=== PATIENT | male | born 1980 ===

== ENCOUNTER 2017-03-06 08:15 | Emergency (ER) | payer BC ==
[2017-03-06 08:37] VITALS: BP 125/79
--- NOTE | 2017-03-06 09:31 | UC ---
Respiratory Complaint HPI - HPI Summary HPI Summary: 2 weeks of painful nonproductive cough that is interfering with sleep. pt does have seasonal allergies which are active right now. he is exhausted from lack of sleep but otherwise feels well. - History of Current Complaint Chief Complaint: UCRespiratory Stated Complaint: DRY COUGH,BACK PAIN Time Seen by Provider: 03/06/17 09:00 Hx Obtained From: Patient Onset/Duration: Gradual Onset, Lasting Weeks, Still Present Timing: Constant Severity Initially: Moderate Severity Currently: Moderate Pain Intensity: 5 - only with cough Character: Cough: Nonproductive Aggravating Factors: Recumbent Position Alleviating Factors: Upright Position Associated Signs And Symptoms: Positive: Pleuritic Chest Pain. Negative: Dyspnea, Fever, Chills, Wheezing, Hemoptysis, Dizziness, URI, Nasal Congestion, Hoarseness, Sinus Discomfort Related History: Seasonal Allergies - Allergies/Home Medications Allergies/Adverse Reactions: Allergies Allergy/AdvReac Type Severity Reaction Status Date / Time No Known Allergies Allergy Verified 03/06/17 08:28 Home Medications: Home Medications Citalopram TAB* [CeleXA TAB*] 10 mg PO DAILY 03/06/17 [History Confirmed ] Lisinopril TAB* [Prinivil TAB*] 10 mg PO BID 03/06/17 [History Confirmed ] Montelukast Sodium TAB* [Singulair TAB*] 10 mg PO DAILY 03/06/17 [History Confirmed 03/06/17] Naproxen Sodium [Naproxen Sodium 500 MG TAB] 500 mg PO Q8H PRN 03/06/17 [ History Confirmed 03/06/17] PMH/Surg Hx/FS Hx/Imm Hx Cardiovascular History: Hypertension - Surgical History Surgical History: None - Family History Known Family History: Positive: Cardiac Disease, Hypertension Negative: Diabetes - Social History Occupation: Employed Full-time Lives: With Family Alcohol Use: Occasionally Substance Use Type: None Smoking Status (MU): Never Smoked Tobacco Review of Systems Constitutional: Negative Skin: Negative Eyes: Negative ENT: Nasal Discharge Respiratory: Cough Cardiovascular: Chest Pain - pleuritic Gastrointestinal: Negative Genitourinary: Negative Neurological: Negative All Other Systems Reviewed And Are Negative: Yes Physical Exam Triage Information Reviewed: Yes Appearance: Well-Appearing, No Pain Distress, Well-Nourished Vital Signs: Initial Vital Signs Temp 98.5 F 03/06/17 08:30 Pulse 91 03/06/17 08:30 Resp 18 03/06/17 08:30 BP 125/79 03/06/17 08:30 Pulse Ox 97 03/06/17 08:30 Vital Signs Reviewed: Yes Eyes: Positive: Conjunctiva Clear, Other: - allergic shiners. Negative: Discharge ENT: Positive: Hearing grossly normal, Pharynx normal, Nasal drainage, TMs normal, Other: - pale boggy nasal mucosa. Negative: Nasal congestion, Tonsillar swelling, Tonsillar exudate, Trismus, Muffled/hoarse voice Dental Exam: Normal Neck: Positive: Supple, Nontender, No Lymphadenopathy Respiratory: Positive: Lungs clear, Normal breath sounds, No respiratory distress, No accessory muscle use Cardiovascular: Positive: RRR, No Murmur Musculoskeletal Exam: Normal Neurological: Positive: Alert, Muscle Tone Normal Psychological: Positive: Age Appropriate Behavior Skin Exam: Normal UC Diagnostic Evaluation - Laboratory O2 Sat by Pulse Oximetry: 97 Respiratory Course/Dx - Differential Dx/Diagnosis Differential Diagnosis/HQI/PQRI: Bronchitis, Lower Resp Infection, Sinusitis Provider Diagnoses: allergies, bronchospasm Discharge - Discharge Plan Condition: Stable Disposition: HOME Prescriptions: Albuterol HFA INHALER* [Ventolin HFA Inhaler*] 2 puff INH Q4H PRN #1 mdi PRN Reason: Sob/Wheezing Benzonatate CAP* [Tessalon 100 MG CAP*] 100 mg PO TID #30 cap Fluticasone NASAL * [Flonase *] 2 spray BOTH NARES DAILY #1 btl guaiFENesin ER TAB [Mucinex*] 600 mg PO BID PRN #1 box PRN Reason: Cough guaiFENesin/CODIEN 100MG-10MG* [Robitussin AC 100Mg-10Mg*] 5 - 10 ml PO BEDTIME PRN #100 udc MDD 10ml PRN Reason: Cough Patient Education Materials: Allergies (ED), Bronchospasm (ED) Referrals: Family [facility] [Primary Care Provider] - If Needed Additional Instructions: TRY USING THE NETTI POT IN THE MORNINGS DISCUSSED. YOU MUST ALWAYS USE CLEAN WATER. INHALED BRONCHODILATORS: You have received a prescription for an inhaled bronchodilator -- a medication which stimulates the airways in the lung to dilate. This improves the flow of air in asthma, bronchitis, and emphysema. These medicines have some similarity to adrenaline, and can cause similar side effects: shakiness, racing heart, and a sense of nervousness. These side effects decrease with time. Contact your doctor if these side effects are severe. Do not over-use the medicine. Too-frequent use of the inhaler may make it ineffective. Call your doctor if the inhaler is not controlling your symptoms at the prescribed doses. COUGH-SUPPRESSANT & EXPECTORANT MEDICATION: You are to use a cough medication as needed for relief of symptoms. This medicine is a combination of an expectorant (to make the mucous thinner and more easily "coughed up") and a cough suppressant (to reduce the frequency of coughing). The cough-suppressant medicine is related to narcotics. You may experience mild nausea and sleepiness. Some patients who are very sensitive to narcotics may have stomach pain from this medicine. Taking the medicine with food reduces these side effects. Do not drive or work with machinery until you know how this medicine affects you. The expectorant should have no side effects. Iodine-containing expectorants (such as organidin) should not be taken by persons with active thyroid disease unless approved by your doctor. Call the doctor if you develop shortness of breath, hives, rash, itching, lightheadedness, or severe nausea and vomiting. EXPECTORANT MEDICATION: WE SENT IN A SCRIPT FOR MUCINEX SO THAT IT IS EASIER FOR YOU TO PICK THE RIGHT MED AT THE PHARMACY. HOWEVER, YOU CAN ALSO GO TO THE [employer] [facility] AND BUY PLAIN GUAIFENESIN WITHOU BINDERS OR FILLERS. An expectorant medicine has been prescribed. This type of drug makes mucous thinner, helping the sinuses, nose, and bronchial tubes to remain free of pus and mucous. Expectorants make a cough less severe and more comfortable, and help infected sinuses drain. In general, antihistamines defeat the purpose of the expectorant by making mucous thicker. They should be avoided unless specifically recommended by your physician. TESSALON PERLES: You have received a prescription for Tessalon Perles (benzonatate). This is a non-narcotic medicine for relief of cough. It usually works in about 15- 20 minutes and lasts around four hours. Tessalon Perles should be swallowed. They should not be chewed or dissolved in the mouth (this can produce temporary numbing of the mouth and choking can occur). If you develop any adverse effects such as wheezing, shortness of breath, hives, rash, itching, or lightheadedness, please return at once. NASAL CORTICOSTEROID INHALER: Nasal "cortisone" inhalers decrease swelling and inflammation in the nasal passages. Nasal steroids decrease the effects of allergy and infection without affecting your whole body. They do NOT cause the side effects we see with steroid shots or pills. These inhalers are a long-term investment in keeping your nose and sinuses clear. You probably won't notice any difference for at least a day. Sometimes it takes several days. Once you have noticed improvement, you can cut back on the inhaler. If your problem only occurs at certain times of the year, you can stop it when you' re better. There's no harm in using it for a long time. Some patients may notice a dry tight throat at first. If you develop severe pain, fever, or foul nasal drainage, see the doctor at once.
== END 2017-03-06 09:28 | disposition home or self-care (01) ==
LOC: UCCORT 08:15
DX: J31.0 Chronic rhinitis (principal); J98.01 Acute bronchospasm; I10 Essential (primary) hypertension
CPT/HCPCS: 99202; G0463

== ENCOUNTER 2017-09-24 17:28 | Emergency (ER) | payer BC ==
--- OUTSIDE RECORDS SUMMARY | 2017-09-24 18:16 | XMS REPORT ---
:1980 External Reference #:[id number] Author Organization [facility] 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 Active Onset: 10/28/2011 Benign essential hypertension Ines Cruz M.D. Active Onset: 10/28/2011 Depressive disorder Ines Cruz M.D. 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 Active Onset: 05/15/2015 Essential hypertension Ines Cruz M.D. Active Onset: 10/28/2011 Contact dermatitis Ines Cruz M.D. Resolved Resolved: 03/29/2013 Onset: 04/01/2012 Allergic rhinitis Ines Cruz M.D. 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 day Hydroxyzine HCL Active Tablets 25mg 60tabs 1-2 tab G47.00 Steve Cruz by mouth Ines Cohn, qpm as M.D. needed Lipitor Active Tablets 40mg 90tabs 1 by Anthony, 017 mouth Ines Cohn, every day M.D. Lisinopril-Hydr Active Tablets 20-25mg 180tabs 1 by I10 Anthony ochlorothiazide 014 mouth Ines Cohn, twice a M.D. day Singulair Active Tablets 10mg 90tabs take one J30.2 Anthony, 012 tablet by Ines Cohn, mouth M.DDennis every day J30.9 Citalopram 10/28/2011 Active Tablets 20mg 90tabs 1 every day F41.9 Ines Cruz Hydrobromide M. MDennisDDennis F32.9 Terbinafine HCL Hx Tablets 250mg 90tabs 1 by mouth every B35.1 Ines Cruz 017 - day M. MDennisD. 017 Macrobid Hx Capsules 100mg 10caps tab one by mouth R35.0 Ines Cruz 016 - twice a day x 5 M., M.D. days 016 Azithromycin Hx Tablets 250mg 6tabs take two tablets J01.80 Ines Cruz 016 - by mouth as one M. M.D. dose on the first day then take one daily thereafter x 4 days Tamsulosin HCL Hx Capsules 0.4mg 30caps 1 by mouth every 601.0 Ines Cruz 014 - day M., M.D. 014 Zithromax Hx Tablets 250mg 6tabs tab 2 today and 788.41 Ines Cruz 014 - then tab one by M. M.D. mouth every day x 014 4 days Bactrim DS Hx Tablets 800-160 20tabs 1 by mouth bid Ines Cruz 013 - mg M., M.D. 013 Pyridium Hx Tablets 200mg 6tabs 1 po tid x 2 days 597.80 Ines Cruz 013 - Advised To Get M., M.D. Azo OTC 014 788.63 788.41 Cipro 06/07/2013 - Hx Tablets 500mg 14tabs 1 by mouth 597.80 Anthony, 06/14/2013 twice a Ahmad M., day M.D. Keflex 05/02/2013 - Hx Capsules 500mg 30caps 1 three 704.8 Anthony, 05/12/2013 times a Ahmad M., day M.D. Lisinopril/[place] 10/26/2012 - Hx Tablets 20-25mg 60tabs 1 by mouth 401.1 Anthony, chlorothiazide 01/31/2014 twice a Ahmad M., day M.D. Amoxicillin 08/31/2012 - Hx Tablets 500mg 30tabs 1 three 461.8 Anthony, 09/21/2012 times a Ahmad M., day x10 M.D. day 382.9 Pred Forte 08/31/2012 - Hx Suspension 1% 10ml 1 drop both 372.39 Anthony, 09/27/2013 eyes twice Ahmad M., a day as M.D. needed Felodipine ER 05/20/2012 - Hx Tablets ER 5mg 90tabs 1 by mouth 401.1 Anthony, 10/26/2012 24HR every day Ines Cohn M.D. Benazepril HCL 05/20/2012 - Hx Tablets 40mg 90tabs 1 by mouth 401.1 Anthony, 10/26/2012 every day Ines Cohn M.D. Augmented 05/20/2012 Hx Cream 0.05% 50gm apply to 782.1 Anthony, Betamethasone affected Ahmad M., Dipropionate area tid M.D. prn 692.9 Triamcinolone 03/07/2012 - Hx Cream 0.5% 60gm apply to 110.3 Anthony, Acetonide 10/16/2012 affected Ahmad M., area twice M.D. a day Jose 03/07/2012 - Hx Tablets 5-20mg Samples Tab One PO 401.1 Anthony, 05/20/2012 qd Ines Cohn M.D. Tobradex 12/30/2011 - Hx Suspension 0.3-0.1 10ml 2 drops 372.30 Anthony, 01/06/2012 % both eyes Ahosman M., three times M.D. a day Diprolene AF 12/18/2011 - Hx Cream 0.05% 50gm apply to 692.9 Anthony, 03/07/2012 affected Ahevgenyd Taras., area as M.D. needed 110.3 Twynsta 10/28/2011 - Hx Tablets 80-5mg 30tabs 1 every day 401.1 Anthony, Ahmad 03/07/2012 Toya Cohn Immunizations CPT Code Status Date Vaccine Lot # [id number] Given 05/18/2015 Flu Vaccine [id number] Given 04/27/2013 Flu Vaccine Vital Signs Date Vital Result Comment 09/10/2017 BP Systolic 118 mmHg BP Diastolic 60 mmHg Height 66.75 inches 5'6.75" Weight 174.00 lb BMI (Body Mass Index) 27.5 kg/m2 Heart Rate 80 /min Respiratory Rate 16 /min 07/12/2017 BP Systolic 116 mmHg BP Diastolic 60 mmHg Height 66.75 inches 5'6.75" Weight 170.00 lb BMI (Body Mass Index) 26.8 kg/m2 Heart Rate 70 /min Respiratory Rate 16 /min 04/30/2017 BP Systolic 118 mmHg BP Diastolic 58 mmHg Height 66.75 inches 5'6.75" Weight 182.00 lb BMI (Body Mass Index) 28.7 kg/m2 Heart Rate 79 /min Respiratory Rate 16 /min 12/14/2016 BP Systolic 138 mmHg BP Diastolic 82 mmHg Height 66.75 inches 5'6.75" Weight 182.00 lb BMI (Body Mass Index) 28.7 kg/m2 Heart Rate 87 /min Respiratory Rate 18 /min 07/21/2016 BP Systolic 118 mmHg BP Diastolic 74 mmHg Height 66.75 inches 5'6.75" Weight 179.00 lb BMI (Body Mass Index) 28.2 kg/m2 Heart Rate 93 /min Respiratory Rate 18 /min 05/25/2016 BP Systolic 126 mmHg BP Diastolic 84 mmHg Height 66.75 inches 5'6.75" Weight 180.00 lb BMI (Body Mass Index) 28.4 kg/m2 Heart Rate 110 /min Respiratory Rate 18 /min 04/14/2016 BP Systolic 122 mmHg BP Diastolic 76 mmHg Height 66.75 inches 5'6.75" Weight 181.00 lb BMI (Body Mass Index) 28.6 kg/m2 Heart Rate 80 /min Respiratory Rate 16 /min 12/17/2015 BP Systolic 128 mmHg BP Diastolic 88 mmHg Heart Rate 88 /min Respiratory Rate 16 /min 09/10/2015 BP Systolic 126 mmHg BP Diastolic 78 mmHg Height 66.75 inches 5'6.75" Weight 178.00 lb BMI (Body Mass Index) 28.1 kg/m2 Heart Rate 80 /min Respiratory Rate 16 /min 07/30/2015 BP Systolic 124 mmHg BP Diastolic 78 mmHg Height 66.75 inches 5'6.75" Weight 177.00 lb BMI (Body Mass Index) 27.9 kg/m2 Heart Rate 80 /min Respiratory Rate 20 /min 05/15/2015 BP Systolic 126 mmHg BP Diastolic 78 mmHg Height 66.75 inches 5'6.75" Weight 182.00 lb BMI (Body Mass Index) 28.7 kg/m2 Heart Rate 88 /min Respiratory Rate 16 /min 04/10/2015 BP Systolic 126 mmHg BP Diastolic 72 mmHg Height 66.75 inches 5'6.75" Weight 176.00 lb BMI (Body Mass Index) 27.8 kg/m2 Heart Rate 88 /min Respiratory Rate 16 /min 02/20/2015 BP Systolic 126 mmHg BP Diastolic 84 mmHg Height 66.75 inches 5'6.75" Weight 171.00 lb BMI (Body Mass Index) 27.0 kg/m2 Heart Rate 80 /min Respiratory Rate 16 /min 02/06/2015 BP Systolic 126 mmHg BP Diastolic 78 mmHg Height 66.75 inches 5'6.75" Weight 181.00 lb BMI (Body Mass Index) 28.6 kg/m2 Heart Rate 80 /min Respiratory Rate 16 /min 01/23/2015 BP Systolic 126 mmHg BP Diastolic 78 mmHg Height 66.75 inches 5'6.75" Weight 180.00 lb BMI (Body Mass Index) 28.4 kg/m2 Heart Rate 80 /min Respiratory Rate 16 /min 10/03/2014 BP Systolic 126 mmHg BP Diastolic 80 mmHg Height 66.75 inches 5'6.75" Weight 175.00 lb BMI (Body Mass Index) 27.6 kg/m2 Heart Rate 80 /min Respiratory Rate 16 /min 09/12/2014 BP Systolic 128 mmHg BP Diastolic 76 mmHg Height 66.75 inches 5'6.75" Weight 176.00 lb BMI (Body Mass Index) 27.8 kg/m2 Heart Rate 88 /min Body Temperature 97.8 F Respiratory Rate 16 /min 08/28/2014 BP Systolic 126 mmHg BP Diastolic 78 mmHg Height 66.75 inches 5'6.75" Weight 175.00 lb BMI (Body Mass Index) 27.6 kg/m2 Heart Rate 78 /min Respiratory Rate 16 /min 07/24/2014 BP Systolic 124 mmHg BP Diastolic 76 mmHg Height 66.75 inches 5'6.75" Weight 175.00 lb BMI (Body Mass Index) 27.6 kg/m2 Heart Rate 80 /min Respiratory Rate 16 /min 04/11/2014 BP Systolic 128 mmHg BP Diastolic 78 mmHg Height 66.75 inches 5'6.75" Weight 175.00 lb BMI (Body Mass Index) 27.6 kg/m2 Heart Rate 88 /min Respiratory Rate 16 /min 03/01/2014 BP Systolic 124 mmHg BP Diastolic 70 mmHg Height 66.75 inches 5'6.75" Weight 175.00 lb BMI (Body Mass Index) 27.6 kg/m2 Heart Rate 88 /min Respiratory Rate 16 /min 01/31/2014 BP Systolic 132 mmHg BP Diastolic 70 mmHg Height 66.75 inches 5'6.75" Weight 172.00 lb BMI (Body Mass Index) 27.1 kg/m2 Heart Rate 88 /min Respiratory Rate 16 /min 09/27/2013 BP Systolic 124 mmHg BP Diastolic 70 mmHg Height 66.75 inches 5'6.75" Weight 174.00 lb BMI (Body Mass Index) 27.5 kg/m2 Heart Rate 80 /min Respiratory Rate 16 /min 06/16/2013 BP Systolic 122 mmHg BP Diastolic 80 mmHg Height 66.75 inches 5'6.75" Weight 172.00 lb BMI (Body Mass Index) 27.1 kg/m2 Heart Rate 88 /min Respiratory Rate 20 /min 06/07/2013 BP Systolic 122 mmHg BP Diastolic 72 mmHg Height 66.75 inches 5'6.75" Weight 170.00 lb BMI (Body Mass Index) 26.8 kg/m2 Heart Rate 80 /min Respiratory Rate 16 /min 05/31/2013 BP Systolic 132 mmHg BP Diastolic 76 mmHg Height 66.75 inches 5'6.75" Weight 170.00 lb BMI (Body Mass Index) 26.8 kg/m2 Heart Rate 88 /min Respiratory Rate 16 /min 05/02/2013 BP Systolic 118 mmHg BP Diastolic 74 mmHg Height 66.75 inches 5'6.75" Weight 168.00 lb BMI (Body Mass Index) 26.5 kg/m2 Heart Rate 80 /min Respiratory Rate 16 /min 03/29/2013 BP Systolic 128 mmHg BP Diastolic 78 mmHg Height 66.75 inches 5'6.75" Weight 170.00 lb BMI (Body Mass Index) 26.8 kg/m2 Heart Rate 80 /min Respiratory Rate 16 /min 01/18/2013 BP Systolic 136 mmHg BP Diastolic 80 mmHg Height 66.75 inches 5'6.75" Weight 168.00 lb BMI (Body Mass Index) 26.5 kg/m2 Heart Rate 72 /min Respiratory Rate 16 /min 11/28/2012 BP Systolic 136 mmHg BP Diastolic 82 mmHg Height 66.75 inches 5'6.75" Weight 170.00 lb BMI (Body Mass Index) 26.8 kg/m2 Heart Rate 80 /min Respiratory Rate 20 /min 10/26/2012 BP Systolic 144 mmHg BP Diastolic 88 mmHg Height 66.75 inches 5'6.75" Weight 172.00 lb BMI (Body Mass Index) 27.1 kg/m2 Heart Rate 90 /min Respiratory Rate 16 /min 08/31/2012 BP Systolic 130 mmHg BP Diastolic 76 mmHg Height 66.75 inches 5'6.75" Weight 171.00 lb BMI (Body Mass Index) 27.0 kg/m2 Heart Rate 80 /min Respiratory Rate 16 /min 07/19/2012 BP Systolic 118 mmHg BP Diastolic 70 mmHg Height 66.75 inches 5'6.75" Weight 170.00 lb BMI (Body Mass Index) 26.8 kg/m2 Heart Rate 80 /min Respiratory Rate 16 /min 06/01/2012 BP Systolic 122 mmHg BP Diastolic 70 mmHg Height 66.75 inches 5'6.75" Weight 168.00 lb BMI (Body Mass Index) 26.5 kg/m2 Heart Rate 88 /min Respiratory Rate 16 /min 05/20/2012 BP Systolic 130 mmHg BP Diastolic 82 mmHg Height 66.75 inches 5'6.75" Weight 171.00 lb BMI (Body Mass Index) 27.0 kg/m2 Heart Rate 82 /min Respiratory Rate 16 /min 03/07/2012 BP Systolic 120 mmHg BP Diastolic 82 mmHg Height 66.75 inches 5'6.75" Weight 168.00 lb BMI (Body Mass Index) 26.5 kg/m2 Heart Rate 80 /min Respiratory Rate 16 /min 12/30/2011 BP Systolic 124 mmHg BP Diastolic 80 mmHg Height 66.75 inches 5'6.75" Weight 168.00 lb BMI (Body Mass Index) 26.5 kg/m2 Heart Rate 74 /min Respiratory Rate 16 /min 10/30/2011 BP Systolic 130 mmHg BP Diastolic 80 mmHg Height 66.75 inches 5'6.75" Weight 167.00 lb BMI (Body Mass Index) 26.3 kg/m2 Heart Rate 80 /min Results Test Date Test Result H/L Range Note Hemoglobin A1c 07/12/2017 Hemoglobin A1c @ 5.9 % (4.0-6.0) Est Average Glucose 123 mg/dL 1 Lipid 07/12/2017 Cholesterol @ 101 mg/dL (0-200) Triglyceride @ 101 mg/dL (30-200) HDL Cholesterol @ 44 mg/dL (>40) 2 Chol/HDL Ratio 2.3 RATIO 3 LDL Chol (Calc) 37 mg/dL (<130) 4 CBC With Diff 04/30/2017 WBC 10.2 10*3/uL (4.1-11.0) RBC 4.82 10*6/uL (4.60-6.10) HGB 14.6 g/dL (13.5-18.0) HCT 42.2 % (41.0-53.0) MCV 87.6 fL (80.0-95.0) MCH 30.3 pg (27.0-32.0) MCHC 34.5 g/dL (32.0-36.0) RDW 13.9 % (10.5-14.5) PLT 301 10*3/uL (150-450) MPV 8.5 fL (7.1-10.7) Neut % 63.7 % (35.0-75.0) Lymph % 29.8 % (16.0-52.0) [place] % 5.7 % (0.0-8.0) Eos % 0.5 % (0.0-5.0) Baso % 0.3 % (0.0-4.0) Neut # 6.5 10*3/uL (1.8-7.7) Lymph # 3.0 10*3/uL (1.2-4.8) [place] # 0.6 10*3/uL (0.0-0.8) Eos # 0.0 10*3/uL (0.0-0.5) Baso # 0.0 10*3/uL (0.0-0.2) CMP 04/30/2017 Sodium 129 mmol/L Low (136-145) Potassium 3.8 mmol/L (3.6-5.2) Chloride 93 mmol/L Low (100-108) Co2 28 mmol/L (22-31) Anion Gap 8 mmol/L (7-16) Urea Nitrogen 13 mg/dL (7-24) Creatinine 0.88 mg/dL (0.80-1.30) BUN/Creat Ratio 14.8 RATIO (10.0-20.0) Glucose 90 mg/dL (70-99) Calcium 9.1 mg/dL (8.4-10.2) Total Protein 8.6 g/dL High (6.4-8.2) Albumin 4.5 g/dL (3.5-4.6) Globulin 4.1 g/dL (2.7-4.3) Alb/Glob Ratio 1.1 RATIO Alkaline Phosphatase 74 U/L (45-117) Bilirubin,Total 0.5 mg/dL (0.0-1.0) Ast (Sgot) 19 U/L (11-39) Alt (SGPT) 53 U/L (12-78) GFR >60 ml/min/1.73m2 (>59) GFR ( Amer) >60 ml/min/1.73m2 (>59) GFR Interpretation <SEE NOTE> 5 Lipid 04/30/2017 Cholesterol @ 168 mg/dL (0-200) Triglyceride @ 239 mg/dL High (30-200) HDL Cholesterol @ 39 mg/dL Low (>40) 6 Chol/HDL Ratio 4.3 RATIO 7 LDL Chol (Calc) 81 mg/dL (<130) 8 Laboratory test finding 04/30/2017 TSH,Ultrasensitive @ 0.629 mIU/L ( 0.360-4.170) Hemoglobin A1c 04/30/2017 Hemoglobin A1c @ 6.0 % (4.0-6.0) Est Average Glucose 126 mg/dL 9 CBC With Diff 07/21/2016 WBC 6.8 10*3/uL (4.1-11.0) RBC 4.78 10*6/uL (4.60-6.10) HGB 14.4 g/dL (13.5-18.0) HCT 42.4 % (41.0-53.0) MCV 88.6 fL (80.0-95.0) MCH 30.1 pg (27.0-32.0) MCHC 33.9 g/dL (32.0-36.0) RDW 14.0 % (10.5-14.5) PLT 301 10*3/uL (150-450) MPV 8.9 fL (7.1-10.7) Neut % 54.3 % (35.0-75.0) Lymph % 37.9 % (16.0-52.0) [place] % 6.6 % (0.0-8.0) Eos % 0.5 % (0.0-5.0) Baso % 0.7 % (0.0-4.0) Neut # 3.7 10*3/uL (1.8-7.7) Lymph # 2.6 10*3/uL (1.2-4.8) [place] # 0.5 10*3/uL (0.0-0.8) Eos # 0.0 10*3/uL (0.0-0.5) Baso # 0.0 10*3/uL (0.0-0.2) CMP 07/21/2016 Sodium 134 mmol/L Low (136-145) Potassium 3.9 mmol/L (3.6-5.2) Chloride 93 mmol/L Low (100-108) Co2 28 mmol/L (22-31) Anion Gap 13 mmol/L (7-16) Urea Nitrogen 12 mg/dL (7-24) Creatinine 0.96 mg/dL (0.80-1.30) BUN/Creat Ratio 12.5 RATIO (10.0-20.0) Glucose 87 mg/dL (70-99) Calcium 8.9 mg/dL (8.4-10.2) Total Protein 8.1 g/dL (6.4-8.2) Albumin 4.5 g/dL (3.5-4.6) Globulin 3.6 g/dL (2.7-4.3) Alb/Glob Ratio 1.3 RATIO Alkaline Phosphatase 58 U/L (45-117) Bilirubin,Total 0.4 mg/dL (0.0-1.0) Ast (Sgot) 15 U/L (11-39) Alt (SGPT) 37 U/L (12-78) GFR >60 ml/min/1.73m2 (>59) GFR ( Amer) >60 ml/min/1.73m2 (>59) GFR Interpretation <SEE NOTE> 10 Hemoglobin A1c 07/21/2016 Hemoglobin A1c @ 5.9 % (4.0-6.0) Est Average Glucose 123 mg/dL 11 Laboratory test finding 07/21/2016 TSH,Ultrasensitive @ 0.941 mIU/L ( 0.360-4.170) Lipid 07/21/2016 Cholesterol @ 165 mg/dL (0-200) Triglyceride @ 220 mg/dL High (30-200) HDL Cholesterol @ 41 mg/dL (>40) 12 Chol/HDL Ratio 4.0 RATIO 13 LDL Chol (Calc) 80 mg/dL (<130) 14 Laboratory test finding 07/30/2015 TSH,Ultrasensitive @ 0.901 mIU/L ( 0.360-4.170) Hemoglobin A1c 07/30/2015 Hemoglobin A1c @ 5.8 % (4.0-6.0) Est Average Glucose 120 mg/dL 15 Lipid 07/30/2015 Cholesterol @ 151 mg/dL (0-200) Triglyceride @ 176 mg/dL (30-200) HDL Cholesterol @ 42 mg/dL (>40) 16 Chol/HDL Ratio 3.6 RATIO 17 LDL Chol (Calc) 74 mg/dL (<130) 18 CMP 07/30/2015 Sodium 133 mmol/L Low (136-145) Potassium 3.8 mmol/L (3.6-5.2) Chloride 96 mmol/L Low (100-108) Co2 27 mmol/L (22-31) Anion Gap 10 mmol/L (7-16) Urea Nitrogen 15 mg/dL (7-24) Creatinine 0.95 mg/dL (0.80-1.30) BUN/Creat Ratio 15.8 RATIO (10.0-20.0) Glucose 99 mg/dL (70-99) Calcium 8.9 mg/dL (8.4-10.2) Total Protein 8.2 g/dL (6.4-8.2) Albumin 4.8 g/dL High (3.5-4.6) Globulin 3.4 g/dL (2.7-4.3) Alb/Glob Ratio 1.4 RATIO Alkaline Phosphatase 58 U/L (45-117) Bilirubin,Total 0.5 mg/dL (0.0-1.0) Ast (Sgot) 22 U/L (11-39) Alt (SGPT) 51 U/L (12-78) GFR >60 ml/min/1.73m2 (>59) GFR ( Amer) >60 ml/min/1.73m2 (>59) GFR Interpretation <SEE NOTE> 19 CBC With Diff 07/30/2015 WBC 9.3 10*3/uL (4.1-11.0) RBC 4.85 10*6/uL (4.60-6.10) HGB 14.5 g/dL (13.5-18.0) HCT 43.8 % (41.0-53.0) MCV 90.3 fL (80.0-95.0) MCH 29.8 pg (27.0-32.0) MCHC 33.1 g/dL (32.0-36.0) RDW 13.6 % (10.5-14.5) PLT 290 10*3/uL (150-450) MPV 8.6 fL (7.1-10.7) Neut % 59.2 % (35.0-75.0) Lymph % 33.8 % (16.0-52.0) [place] % 6.1 % (0.0-8.0) Eos % 0.4 % (0.0-5.0) Baso % 0.5 % (0.0-4.0) Neut # 5.5 10*3/uL (1.8-7.7) Lymph # 3.1 10*3/uL (1.2-4.8) [place] # 0.6 10*3/uL (0.0-0.8) Eos # 0.0 10*3/uL (0.0-0.5) Baso # 0.0 10*3/uL (0.0-0.2) CBC W/Automated Diff 02/06/2015 White Blood Count 6.0 K/uL 3.4-10.5 Red Blood Count 4.71 M/uL 4.20-5.80 Hemoglobin 14.4 gm/dL 12.8-17.0 Hematocrit 43.1 % 38.0-48.0 Mean Cell Volume 91.5 fl 80.0-96.0 Mean Corpuscular HGB 30.6 pg 27.0-33.0 Mean Corpuscular HGB Conc 33.4 g/dL 31.7-36.0 Platelet Count 289 K/uL 150-400 Red Cell Distri Width SD 45.3 fl 36-51 Red Cell Distri Width %CV 13.9 % 11.6-15.8 Mean Platelet Volume 11.3 fL High 6.6-10.6 Neut% 51.8 % 33.0-73.0 Lymph % 38.9 % 17.0-56.0 [place] % 7.6 % 0.0-10.0 Eo% 1.2 % 0.0-5.0 Bas% 0.5 % 0.1-1.0 Neut# 3.09 K/uL 1.8-7.0 Lymph # 2.32 K/uL 1.8-7.0 [place] # 0.45 K/uL 0.0-0.8 Eos # 0.07 K/uL 0.0-0.5 Baso # 0.03 K/uL Low 0.1-0.2 Comprehensive Metabolic Panel 02/06/2015 Glucose 111 mg/dL High 74-106 BUN 11 mg/dL 7-18 Creatinine 0.8 mg/dL 0.6-1.3 Glom Filtration Rate, Estimate >60 mL/min >60 If >60 mL/min >60 20 BUN/Creat 13.7 ratio Sodium 134 mmol/L Low 136-145 Potassium 4.1 mmol/L 3.5-5.1 Chloride 99 mmol/L 98-107 Carbon Dioxide 30 mmol/L 21-32 Anion Gap 5 mEq/L Low 8-16 Calcium 9.4 mg/dL 8.5-10.1 Total Protein 7.7 g/dL 6.4-8.2 Albumin 4.3 g/dL 3.4-5.0 Globulin 3.4 g/dL 1.9-4.3 Alb/Glob 1.3 ratio Bilirubin,Total 0.2 mg/dL 0.2-1.0 Sgot/Ast 22 U/L 15-37 SGPT/Alt 64 U/L 12-78 Alkaline Phosphatase 68 U/L 45-117 Laboratory test finding 02/06/2015 C-Reactive Protein,Cardiac 1.49 mg/L & lt;3.0 Sedimentation Rate 4 mm/hr 0-15 LDL Cholesterol Profile 02/06/2015 Cholesterol 152 mg/dL < 200 21 Triglycerides 232 mg/dL < 150 22 HDL Cholesterol 35 mg/dL > 40 23 LDL-Cholesterol 71 mg/dL < 100 24 Laboratory test finding 02/06/2015 TSH Reflex FT4 and/or 0.82 uIU/mL 0.36 -3.74 25 FT3 CBC W/Automated Diff 08/28/2014 White Blood Count 9.1 K/uL 3.4-10.5 Red Blood Count 4.64 M/uL 4.20-5.80 Hemoglobin 14.2 gm/dL 12.8-17.0 Hematocrit 42.1 % 38.0-48.0 Mean Cell Volume 90.7 fl 80.0-96.0 Mean Corpuscular HGB 30.6 pg 27.0-33.0 Mean Corpuscular HGB Conc 33.7 g/dL 31.7-36.0 Platelet Count 329 K/uL 150-400 Red Cell Distri Width SD 43.8 fl 36-51 Red Cell Distri Width %CV 13.4 % 11.6-15.8 Mean Platelet Volume 10.5 fL 6.6-10.6 Neut% 61.7 % 33.0-73.0 Lymph % 30.2 % 17.0-56.0 [place] % 7.6 % 0.0-10.0 Eo% 0.3 % 0.0-5.0 Bas% 0.2 % 0.1-1.0 Neut# 5.61 K/uL 1.8-7.0 Lymph # 2.75 K/uL 1.2-4.0 [place] # 0.69 K/uL High 0.0-0.6 Eos # 0.03 K/uL 0.0-0.5 Baso # 0.02 K/uL Low 0.1-0.2 Laboratory test finding 08/28/2014 Prostate Specific 0.76 ng/mL 26 Antigen Comprehensive Metabolic 08/28/2014 Glucose 92 mg/dL 74-106 Panel BUN 10 mg/dL 7-18 Creatinine 1.0 mg/dL 0.6-1.3 Glom Filtration Rate, Estimate >60 mL/min >60 If >60 mL/min >60 27 BUN/Creat 10.0 ratio Sodium 133 mmol/L Low 136-145 Potassium 3.6 mmol/L 3.5-5.1 Chloride 98 mmol/L 98-107 Carbon Dioxide 29 mmol/L 21-32 Anion Gap 10 mEq/L 8-16 Calcium 9.6 mg/dL 8.5-10.1 Total Protein 7.9 g/dL 6.4-8.2 Albumin 4.5 g/dL 3.4-5.0 Globulin 3.4 g/dL 1.9-4.3 Alb/Glob 1.3 ratio Bilirubin,Total 0.5 mg/dL 0.2-1.0 Sgot/Ast 16 U/L 15-37 SGPT/Alt 49 U/L 12-78 Alkaline Phosphatase 70 U/L 45-117 Urine Culture 08/28/2014 Urine Culture See Note 28 Comprehensive Metabolic Panel 07/24/2014 Glucose 109 mg/dL High 74-106 BUN 13 mg/dL 7-18 Creatinine 0.9 mg/dL 0.6-1.3 Glom Filtration Rate, Estimate >60 mL/min >60 If >60 mL/min >60 29 BUN/Creat 14.4 ratio Sodium 133 mmol/L Low 136-145 Potassium 4.1 mmol/L 3.5-5.1 Chloride 98 mmol/L 98-107 Carbon Dioxide 29 mmol/L 21-32 Anion Gap 10 mEq/L 8-16 Calcium 9.5 mg/dL 8.5-10.1 Total Protein 8.2 g/dL 6.4-8.2 Albumin 4.8 g/dL 3.4-5.0 Globulin 3.4 g/dL 1.9-4.3 Alb/Glob 1.4 ratio Bilirubin,Total 0.4 mg/dL 0.2-1.0 Sgot/Ast 19 U/L 15-37 SGPT/Alt 55 U/L 12-78 Alkaline Phosphatase 74 U/L 45-117 LDL Cholesterol Profile 07/24/2014 Cholesterol 167 mg/dL < 200 30 Triglycerides 232 mg/dL < 150 31 HDL Cholesterol 43 mg/dL > 40 32 LDL-Cholesterol 78 mg/dL < 100 33 CBC W/Automated Diff 07/24/2014 White Blood Count 8.0 K/uL 3.4-10.5 Red Blood Count 4.83 M/uL 4.20-5.80 Hemoglobin 14.8 gm/dL 12.8-17.0 Hematocrit 43.8 % 38.0-48.0 Mean Cell Volume 90.7 fl 80.0-96.0 Mean Corpuscular HGB 30.6 pg 27.0-33.0 Mean Corpuscular HGB Conc 33.8 g/dL 31.7-36.0 Platelet Count 319 K/uL 150-400 Red Cell Distri Width SD 44.7 fl 36-51 Red Cell Distri Width %CV 13.8 % 11.6-15.8 Mean Platelet Volume 11.0 fL High 6.6-10.6 Neut% 62.3 % 33.0-73.0 Lymph % 29.2 % 17.0-56.0 [place] % 7.2 % 0.0-10.0 Eo% 0.9 % 0.0-5.0 Bas% 0.4 % 0.1-1.0 Neut# 4.99 K/uL 1.8-7.0 Lymph # 2.34 K/uL 1.2-4.0 [place] # 0.58 K/uL 0.0-0.6 Eos # 0.07 K/uL 0.0-0.5 Baso # 0.03 K/uL Low 0.1-0.2 Glycohemoglobin A1c 07/24/2014 Glycohemoglobin (A1c) 5.8 % 4.2-6.3 34 eAG 120 mg/dL CBC W/Automated Diff 01/31/2014 White Blood Count 8.5 K/uL 3.4-10.5 Red Blood Count 4.68 M/uL 4.20-5.80 Hemoglobin 14.5 gm/dL 12.8-17.0 Hematocrit 41.6 % 38.0-48.0 Mean Cell Volume 88.9 fl 80.0-96.0 Mean Corpuscular HGB 31.0 pg 27.0-33.0 Mean Corpuscular HGB Conc 34.9 g/dL 31.7-36.0 Platelet Count 333 K/uL 150-400 Red Cell Distri Width SD 43.1 fl 36-51 Red Cell Distri Width %CV 13.5 % 11.6-15.8 Mean Platelet Volume 10.3 fL 6.6-10.6 Neut% 59.5 % 33.0-73.0 Lymph % 33.6 % 17.0-56.0 [place] % 6.3 % 0.0-10.0 Eo% 0.4 % 0.0-5.0 Bas% 0.2 % 0.1-1.0 Neut# 5.08 K/uL 1.8-7.0 Lymph # 2.87 K/uL 1.2-4.0 [place] # 0.54 K/uL 0.0-0.6 Eos # 0.03 K/uL 0.0-0.5 Baso # 0.02 K/uL Low 0.1-0.2 Comprehensive Metabolic Panel 01/31/2014 Glucose 94 mg/dL 76-115 BUN 12 mg/dL 5-23 Creatinine 0.9 mg/dL 0.5-1.4 Glom Filtration Rate, Estimate >60 mL/min >60 If >60 mL/min >60 35 BUN/Creat 13.3 ratio Sodium 131 mmol/L Low 136-145 Potassium 4.0 mmol/L 3.5-5.1 Chloride 96 mmol/L Low 98-107 Carbon Dioxide 29 mEq/L 18-29 Anion Gap 10 mEq/L 8-16 Calcium 9.5 mg/dL 8.5-10.1 Total Protein 8.5 g/dL High 6.3-8.0 Albumin 4.7 g/dL 3.5-5.0 Globulin 3.8 g/dL 1.9-4.3 Alb/Glob 1.2 ratio Bilirubin,Total 0.5 mg/dL 0.2-1.2 Sgot/Ast 21 U/L 16-40 SGPT/Alt 51 U/L 30-65 Alkaline Phosphatase 72 U/L 50-136 Laboratory test finding 01/31/2014 TSH Reflex FT4 1.09 uIU/mL 0.49-4.67 36 and/or FT3 Comprehensive Metabolic 09/27/2013 Glucose 89 mg/dL 76-115 Panel BUN 12 mg/dL 5-23 Creatinine 0.8 mg/dL 0.5-1.4 Glom Filtration Rate, Estimate >60 mL/min >60 If >60 mL/min >60 37 BUN/Creat 15.0 ratio Sodium 133 mmol/L Low 136-145 Potassium 3.9 mmol/L 3.5-5.1 Chloride 100 mmol/L 98-107 Carbon Dioxide 26 mEq/L 18-29 Anion Gap 11 mEq/L 8-16 Calcium 9.3 mg/dL 8.5-10.1 Total Protein 7.9 g/dL 6.3-8.0 Albumin 4.4 g/dL 3.5-5.0 Globulin 3.5 g/dL 1.9-4.3 Alb/Glob 1.3 ratio Bilirubin,Total 0.3 mg/dL 0.2-1.2 Sgot/Ast 27 U/L 16-40 SGPT/Alt 78 U/L High 30-65 Alkaline Phosphatase 52 U/L 50-136 CBC W/Automated Diff 09/27/2013 White Blood Count 7.9 K/uL 3.4-10.5 Red Blood Count 4.47 M/uL 4.20-5.80 Hemoglobin 14.1 gm/dL 12.8-17.0 Hematocrit 40.4 % 38.0-48.0 Mean Cell Volume 90.4 fl 80.0-96.0 Mean Corpuscular HGB 31.5 pg 27.0-33.0 Mean Corpuscular HGB Conc 34.9 g/dL 31.7-36.0 Platelet Count 296 K/uL 150-400 Red Cell Distri Width SD 42.5 fl 36-51 Red Cell Distri Width %CV 13.2 % 11.6-15.8 Mean Platelet Volume 10.4 fL 6.6-10.6 Neut% 52.0 % 33.0-73.0 Lymph % 40.5 % 17.0-56.0 [place] % 6.8 % 0.0-10.0 Eo% 0.4 % 0.0-5.0 Bas% 0.3 % 0.1-1.0 Neut# 4.13 K/uL 1.8-7.0 Lymph # 3.21 K/uL 1.2-4.0 [place] # 0.54 K/uL 0.0-0.6 Eos # 0.03 K/uL 0.0-0.5 Baso # 0.02 K/uL Low 0.1-0.2 LDL Cholesterol Profile 09/27/2013 Cholesterol 163 mg/dL 120-200 Triglycerides 265 mg/dL High 16-231 HDL Cholesterol 42 mg/dL 29-83 LDL-Cholesterol 68 mg/dL 62-185 Laboratory test finding 09/27/2013 Thyroid Stim Hormone 1.03 uIU/mL 0.49- 4.67 Glycohemoglobin A1c 09/27/2013 Glycohemoglobin (A1c) 5.6 % 4.8-6.0 38 eAG 114 mg/dL CBC W/Automated Diff 06/16/2013 White Blood Count 9.9 K/uL 3.4-10.5 Red Blood Count 4.66 M/uL 4.20-5.80 Hemoglobin 14.9 gm/dL 12.8-17.0 Hematocrit 42.9 % 38.0-48.0 Mean Cell Volume 92.1 fl 80.0-96.0 Mean Corpuscular HGB 32.0 pg 27.0-33.0 Mean Corpuscular HGB Conc 34.7 g/dL 31.7-36.0 Platelet Count 296 K/uL 150-400 Red Cell Distri Width SD 43.5 fl 36-51 Red Cell Distri Width %CV 13.2 % 11.6-15.8 Mean Platelet Volume 11.0 fL High 6.6-10.6 Neut% 60.1 % 33.0-73.0 Lymph % 32.8 % 17.0-56.0 [place] % 6.5 % 0.0-10.0 Eo% 0.4 % 0.0-5.0 Bas% 0.2 % 0.1-1.0 Neut# 5.97 K/uL 1.8-7.0 Lymph # 3.26 K/uL 1.2-4.0 [place] # 0.65 K/uL High 0.0-0.6 Eos # 0.04 K/uL 0.0-0.5 Baso # 0.02 K/uL Low 0.1-0.2 Comprehensive Metabolic Panel 06/16/2013 Glucose 97 mg/dL 76-115 BUN 20 mg/dL 5-23 Creatinine 1.2 mg/dL 0.5-1.4 Glom Filtration Rate, Estimate >60 mL/min >60 If >60 mL/min >60 39 BUN/Creat 16.6 ratio Sodium 135 mmol/L Low 136-145 Potassium 4.1 mmol/L 3.5-5.1 Chloride 99 mmol/L 98-107 Carbon Dioxide 27 mEq/L 18-29 Anion Gap 13 mEq/L 8-16 Calcium 9.5 mg/dL 8.5-10.1 Total Protein 8.2 g/dL High 6.3-8.0 Albumin 4.6 g/dL 3.5-5.0 Globulin 3.6 g/dL 1.9-4.3 Alb/Glob 1.3 ratio Bilirubin,Total 0.3 mg/dL 0.2-1.2 Sgot/Ast 24 U/L 16-40 SGPT/Alt 63 U/L 30-65 Alkaline Phosphatase 57 U/L 50-136 Urine Culture 06/16/2013 Urine Culture See Note 40 Laboratory test finding 06/16/2013 Prostate Specific 0.79 ng/mL 0.00- 4.00 41 Antigen Basic Metabolic Panel 01/06/2013 Glucose 109 mg/dL 76-115 BUN 18 mg/dL 5-23 Creatinine 1.1 mg/dL 0.5-1.4 Glom Filtration Rate, Estimate >60 mL/min >60 If >60 mL/min >60 42 BUN/Creat 16.3 ratio Sodium 134 mmol/L Low 136-145 Potassium 3.9 mmol/L 3.5-5.1 Chloride 98 mmol/L 98-107 Carbon Dioxide 26 mEq/L 18-29 Anion Gap 14 mEq/L 8-16 Calcium 9.6 mg/dL 8.5-10.1 CBC W/Automated Diff 01/06/2013 White Blood Count 7.1 K/uL 3.4-10.5 Red Blood Count 4.82 M/uL 4.20-5.80 Hemoglobin 15.1 gm/dL 12.8-17.0 Hematocrit 42.6 % 38.0-48.0 Mean Cell Volume 88.4 fl 80.0-96.0 Mean Corpuscular HGB 31.3 pg 27.0-33.0 Mean Corpuscular HGB Conc 35.4 g/dL 31.7-36.0 Platelet Count 302 K/uL 150-400 Red Cell Distri Width SD 42.2 fl 36-51 Red Cell Distri Width %CV 13.4 % 11.6-15.8 Mean Platelet Volume 10.9 fL High 6.6-10.6 Neut% 51.2 % 33.0-73.0 Lymph % 39.5 % 17.0-56.0 [place] % 8.5 % 0.0-10.0 Eo% 0.4 % 0.0-5.0 Bas% 0.4 % 0.1-1.0 Neut# 3.63 K/uL 1.8-7.0 Lymph # 2.80 K/uL 1.2-4.0 [place] # 0.60 K/uL 0.0-0.6 Eos # 0.03 K/uL 0.0-0.5 Baso # 0.03 K/uL Low 0.1-0.2 LDL Cholesterol Profile 01/06/2013 Cholesterol 185 mg/dL 120-200 Triglycerides 233 mg/dL High 16-231 HDL Cholesterol 42 mg/dL 29-83 LDL-Cholesterol 96 mg/dL 62-185 Liver Function Tests 01/06/2013 Total Protein 8.9 g/dL High 6.3-8.0 Albumin 4.8 g/dL 3.5-5.0 Globulin 4.1 g/dL 1.9-4.3 Alb/Glob 1.2 ratio Bilirubin,Total 0.5 mg/dL 0.2-1.2 Bilirubin,Direct < 0.1 mg/dL Low 0.1-0.4 Bilirubin,Indirect 0.4 mg/dL 0.0-0.9 Sgot/Ast 25 U/L 16-40 SGPT/Alt 71 U/L High 30-65 Alkaline Phosphatase 70 U/L 50-136 Laboratory test finding 01/06/2013 Thyroid Stim Hormone 1.81 uIU/mL 0.49- 4.67 Sedimentation Rate 5 mm/hr 0-15 CBC W/Automated Diff 05/20/2012 White Blood Count 7.1 K/uL 3.4-10.5 Red Blood Count 4.53 M/uL 4.20-5.80 Hemoglobin 14.4 gm/dL 12.8-17.0 Hematocrit 42.0 % 38.0-48.0 Mean Cell Volume 92.7 fl 80.0-96.0 Mean Corpuscular HGB 31.8 pg 27.0-33.0 Mean Corpuscular HGB Conc 34.3 g/dL 31.7-36.0 Platelet Count 290 K/uL 150-400 Red Cell Distri Width SD 44.4 fl 36-51 Red Cell Distri Width %CV 13.4 % 11.6-15.8 Mean Platelet Volume 11.0 fL High 6.6-10.6 Neut% 55.0 % 33.0-73.0 Lymph % 38.4 % 17.0-56.0 [place] % 6.0 % 0.0-10.0 Eo% 0.3 % 0.0-5.0 Bas% 0.3 % 0.1-1.0 Neut# 3.88 K/uL 1.8-7.0 Lymph # 2.71 K/uL 1.2-4.0 [place] # 0.42 K/uL 0.0-0.6 Eos # 0.02 K/uL 0.0-0.5 Baso # 0.02 K/uL Low 0.1-0.2 Laboratory test finding 05/20/2012 Sedimentation Rate 5 mm/hr 0-15 C-Reactive Protein,Cardiac 0.58 mg/L 0.00-3.00 43 Basic Metabolic Panel 05/20/2012 Glucose 99 mg/dL 76-115 BUN 14 mg/dL 5-23 Creatinine 1.0 mg/dL 0.5-1.4 Glom Filtration Rate, Estimate >60 mL/min >60 If >60 mL/min >60 44 BUN/Creat 14.0 ratio Sodium 136 mmol/L 136-145 Potassium 4.2 mmol/L 3.5-5.1 Chloride 101 mmol/L 98-107 Carbon Dioxide 26 mEq/L 18-29 Anion Gap 13 mEq/L 8-16 Calcium 9.1 mg/dL 8.5-10.1 Laboratory test 05/20/2012 Anti-Nuclear Antibodies Negative AU/mL Negative 45 finding Direct Rheumatoid Factor Screen NEGATIVE Negative Liver Function Tests 05/20/2012 Total Protein 8.0 g/dL 6.3-8.0 Albumin 4.4 g/dL 3.5-5.0 Globulin 3.6 g/dL 1.9-4.3 Alb/Glob 1.2 ratio Bilirubin,Total 0.3 mg/dL 0.2-1.2 Bilirubin,Direct < 0.1 mg/dL Low 0.1-0.4 Bilirubin,Indirect 0.2 mg/dL 0.0-0.9 Sgot/Ast 43 U/L High 16-40 SGPT/Alt 79 U/L High 30-65 Alkaline Phosphatase 59 U/L 50-136 1 HEMOGLOBIN A1c INTERPRETATION: 4.0-6.0% GOOD GLYCEMIC CONTROL 6.1-6.5% AT RISK FOR HYPERGLYCEMIA >6.5% DIABETIC/ POOR GLYCEMIC CONTROL REFERENCE: DIABETES CARE 32(7), 2008 IF A1c RESULT IS INCONSISTENT WITH CLINICAL ESTIMATES OF GLYCEMIC CONTROL, AN INTERFERING Hb VARIANT SHOULD BE CONSIDERED. 2 PER NCEP ATP III GUIDELINES: RESULTS LOWER THAN 40 MG/DL ARE SUGGESTIVE OF INCREASED RISK FOR CORONARY ARTERY DISEASE. RESULTS > OR=TO 60 MG/DL ARE CONSIDERED A NEGATIVE RISK FACTOR. 3 INTERPRETATION OF CHOL-HDL RATIO CHD RISK FEMALE MALE VERY HIGH >8.3 >14.3 HIGH 5.6- 8.3 6.7- 14.3 AVERAGE 3.7- 5.6 4.0- 6.7 BELOW AVERAGE 2.5- 3.7 2.7- 4.0 PROTECTED <2.5 <2.7 4 PER NCEP ATP III GUIDELINES: OPTIMAL < 100 NEAR OPTIMAL 100 - 129 BORDERLINE HIGH 130 - 159 HIGH 160 - 189 VERY HIGH > 189 5 NORMAL KIDNEY FUNCTION OR MILD DISEASE - GFR >OR=60 CHRONIC KIDNEY DISEASE - GFR 15 - 59 RENAL FAILURE - GFR <15 Est. GFR calculation based on the MDRD study equation, which assumes a steady state for creatinine. Est. GFR should not be used for medication dosing. 6 PER NCEP ATP III GUIDELINES: RESULTS LOWER THAN 40 MG/DL ARE SUGGESTIVE OF INCREASED RISK FOR CORONARY ARTERY DISEASE. RESULTS > OR=TO 60 MG/DL ARE CONSIDERED A NEGATIVE RISK FACTOR. 7 INTERPRETATION OF CHOL-HDL RATIO CHD RISK FEMALE MALE VERY HIGH >8.3 >14.3 HIGH 5.6- 8.3 6.7- 14.3 AVERAGE 3.7- 5.6 4.0- 6.7 BELOW AVERAGE 2.5- 3.7 2.7- 4.0 PROTECTED <2.5 <2.7 8 PER NCEP ATP III GUIDELINES: OPTIMAL < 100 NEAR OPTIMAL 100 - 129 BORDERLINE HIGH 130 - 159 HIGH 160 - 189 VERY HIGH > 189 9 HEMOGLOBIN A1c INTERPRETATION: 4.0-6.0% GOOD GLYCEMIC CONTROL 6.1-6.5% AT RISK FOR HYPERGLYCEMIA >6.5% DIABETIC/ POOR GLYCEMIC CONTROL REFERENCE: DIABETES CARE 32(7), 2009 IF A1c RESULT IS INCONSISTENT WITH CLINICAL ESTIMATES OF GLYCEMIC CONTROL, AN INTERFERING Hb VARIANT SHOULD BE CONSIDERED. 10 NORMAL KIDNEY FUNCTION OR MILD DISEASE - GFR >OR=60 CHRONIC KIDNEY DISEASE - GFR 15 - 59 RENAL FAILURE - GFR <15 Est. GFR calculation based on the MDRD study equation, which assumes a steady state for creatinine. Est. GFR should not be used for medication dosing. 11 HEMOGLOBIN A1c INTERPRETATION: 4.0-6.0% GOOD GLYCEMIC CONTROL 6.1-6.5% AT RISK FOR HYPERGLYCEMIA >6.5% DIABETIC/ POOR GLYCEMIC CONTROL REFERENCE: DIABETES CARE 32(7), 2009 IF A1c RESULT IS INCONSISTENT WITH CLINICAL ESTIMATES OF GLYCEMIC CONTROL, AN INTERFERING Hb VARIANT SHOULD BE CONSIDERED. 12 PER NCEP ATP III GUIDELINES: RESULTS LOWER THAN 40 MG/DL ARE SUGGESTIVE OF INCREASED RISK FOR CORONARY ARTERY DISEASE. RESULTS > OR=TO 60 MG/DL ARE CONSIDERED A NEGATIVE RISK FACTOR. 13 INTERPRETATION OF CHOL-HDL RATIO CHD RISK FEMALE MALE VERY HIGH >8.3 >14.3 HIGH 5.6- 8.3 6.7- 14.3 AVERAGE 3.7- 5.6 4.0- 6.7 BELOW AVERAGE 2.5- 3.7 2.7- 4.0 PROTECTED <2.5 <2.7 14 PER NCEP ATP III GUIDELINES: OPTIMAL < 100 NEAR OPTIMAL 100 - 129 BORDERLINE HIGH 130 - 159 HIGH 160 - 189 VERY HIGH > 189 15 HEMOGLOBIN A1c INTERPRETATION: 4.0-6.0% GOOD GLYCEMIC CONTROL 6.1-6.5% AT RISK FOR HYPERGLYCEMIA >6.5% DIABETIC/ POOR GLYCEMIC CONTROL REFERENCE: DIABETES CARE 32(7), 2009 IF A1c RESULT IS INCONSISTENT WITH CLINICAL ESTIMATES OF GLYCEMIC CONTROL, AN INTERFERING Hb VARIANT SHOULD BE CONSIDERED. 16 PER NCEP ATP III GUIDELINES: RESULTS LOWER THAN 40 MG/DL ARE SUGGESTIVE OF INCREASED RISK FOR CORONARY ARTERY DISEASE. RESULTS > OR=TO 60 MG/DL ARE CONSIDERED A NEGATIVE RISK FACTOR. 17 INTERPRETATION OF CHOL-HDL RATIO CHD RISK FEMALE MALE VERY HIGH >8.3 >14.3 HIGH 5.6- 8.3 6.7- 14.3 AVERAGE 3.7- 5.6 4.0- 6.7 BELOW AVERAGE 2.5- 3.7 2.7- 4.0 PROTECTED <2.5 <2.7 18 PER NCEP ATP III GUIDELINES: OPTIMAL < 100 NEAR OPTIMAL 100 - 129 BORDERLINE HIGH 130 - 159 HIGH 160 - 189 VERY HIGH > 189 19 NORMAL KIDNEY FUNCTION OR MILD DISEASE - GFR >OR=60 CHRONIC KIDNEY DISEASE - GFR 15 - 59 RENAL FAILURE - GFR <15 Est. GFR calculation based on the MDRD study equation, which assumes a steady state for creatinine. Est. GFR should not be used for medication dosing. 20 Note: Persistent reduction for 3 months or more in an eGFR <60 mL/min/1.73 m2 defines CKD. Patients with eGFR values >/=60 mL/min/1.73 m2 may also have CKD if evidence of persistent proteinuria is present. The original MDRD equation for estimated GFR is not valid for patients less than 18 years of age. Additional information may be found at [email or web address]. 21 Reference Guidelines*: Desirable: ........... < 200 mg/dL Borderline High: ..... 200-239 mg/dL High: ................ >=240 mg/dL * The National Cholesterol Education Program (NCEP) 22 Reference Guidelines*: Normal: ............. < 150 mg/dL Borderline High: .... 150-199 mg/dL High: ............... 200-499 mg/dL Very High: .......... > 500 mg/dL * Source: National Cholesterol Education Program (NCEP) 23 Reference Guidelines*: Low HDL: ..... < 40 mg/dL Normal: ..... 40-60 mg/dL Desirable: ... > 60 mg/dL *The National Cholesterol Education Program(NCEP) 24 Reference Guidelines*: Optimal:........... <100 mg/dL Near Optimal....... 100-129 mg/dL Borderline High.... 130-159 mg/dL High............... 160-189 mg/dL Very High.......... >=190 mg/dL * Source: National Cholesterol Education Program (NCEP) 25 QUERY: Reflex add FT3? N QUERY: Reflex add FT4? Y 26 THIS ASSAY IS NOT INTENDED A CANCER SCREENING TEST The concentration of PSA in a given specimen, determined with assays from different manufacturers, can vary due to differences in assay methods and reagent specificity. Values obtained from different assay methods cannot be used interchangeably. 27 Note: Persistent reduction for 3 months or more in an eGFR <60 mL/min/1.73 m2 defines CKD. Patients with eGFR values >/=60 mL/min/1.73 m2 may also have CKD if evidence of persistent proteinuria is present. The original MDRD equation for estimated GFR is not valid for patients less than 18 years of age. Additional information may be found at [email or web address]. 28 NO GROWTH: FINAL REPORT 29 Note: Persistent reduction for 3 months or more in an eGFR <60 mL/min/1.73 m2 defines CKD. Patients with eGFR values >/=60 mL/min/1.73 m2 may also have CKD if evidence of persistent proteinuria is present. The original MDRD equation for estimated GFR is not valid for patients less than 18 years of age. Additional information may be found at [email or web address]. 30 Reference Guidelines*: Desirable: ........... < 200 mg/dL Borderline High: ..... 200-239 mg/dL High: ................ >=240 mg/dL * The National Cholesterol Education Program (NCEP) 31 Reference Guidelines*: Normal: ............. < 150 mg/dL Borderline High: .... 150-199 mg/dL High: ............... 200-499 mg/dL Very High: .......... > 500 mg/dL * Source: National Cholesterol Education Program (NCEP) 32 Reference Guidelines*: Low HDL: ..... < 40 mg/dL Normal: ..... 40-60 mg/dL Desirable: ... > 60 mg/dL *The National Cholesterol Education Program(NCEP) 33 Reference Guidelines*: Optimal:........... <100 mg/dL Near Optimal....... 100-129 mg/dL Borderline High.... 130-159 mg/dL High............... 160-189 mg/dL Very High.......... >=190 mg/dL * Source: National Cholesterol Education Program (NCEP) 34 Elevated levels of HbA1c suggest the need for more aggressive treatment of glycemia. The [place] [employer] recommends that a primary goal of therapy should be a HbA1c of <7% and that physicians should re-evaluate the treatment regimen in patients with HbA1c values consistently >8%. 35 Note: Persistent reduction for 3 months or more in an eGFR <60 mL/min/1.73 m2 defines CKD. Patients with eGFR values >/=60 mL/min/1.73 m2 may also have CKD if evidence of persistent proteinuria is present. The original MDRD equation for estimated GFR is not valid for patients less than 18 years of age. Additional information may be found at [email or web address]. 36 QUERY: Reflex add FT3? N QUERY: Reflex add FT4? Y 37 Note: Persistent reduction for 3 months or more in an eGFR <60 mL/min/1.73 m2 defines CKD. Patients with eGFR values >/=60 mL/min/1.73 m2 may also have CKD if evidence of persistent proteinuria is present. The original MDRD equation for estimated GFR is not valid for patients less than 18 years of age. Additional information may be found at [email or web address]. 38 A1c value between 5.7% and 6.4% is considered at increased risk for diabetes. A1c value greater than 6.5 % is considered essentially diagnostic for Type II diabetes. Current guidelines recommend a treatment goal of <7% for diabetic patients. This method will measure glycosylated hemoglobin variants, HbS, HbG, HbH, HbWayne, HbC, HbE, etc. Other hemoglobin- opathies may give incorrect results with this test. 39 Note: Persistent reduction for 3 months or more in an eGFR <60 mL/min/1.73 m2 defines CKD. Patients with eGFR values >/=60 mL/min/1.73 m2 may also have CKD if evidence of persistent proteinuria is present. The original MDRD equation for estimated GFR is not valid for patients less than 18 years of age. Additional information may be found at [email or web address]. 40 NO GROWTH: FINAL REPORT 41 THIS ASSAY IS NOT INTENDED A CANCER SCREENING TEST The concentration of PSA in a given specimen, determined with assays from different manufacturers, can vary due to differences in assay methods and reagent specificity. Values obtained from different assay methods cannot be used interchangeably. 42 Note: Persistent reduction for 3 months or more in an eGFR <60 mL/min/1.73 m2 defines CKD. Patients with eGFR values >/=60 mL/min/1.73 m2 may also have CKD if evidence of persistent proteinuria is present. The original MDRD equation for estimated GFR is not valid for patients less than 18 years of age. Additional information may be found at [email or web address]. 43 Relative Risk for Future Cardiovascular Event Low <1.00 Average 1.00 - 3.00 High >3.00 44 Note: Persistent reduction for 3 months or more in an eGFR <60 mL/min/1.73 m2 defines CKD. Patients with eGFR values >/=60 mL/min/1.73 m2 may also have CKD if evidence of persistent proteinuria is present. The original MDRD equation for estimated GFR is not valid for patients less than 18 years of age. Additional information may be found at [email or web address]. 45 Performed at: RN - [facility] [address] [id number] Senior Systems Programmer: Abbey Barbour MD, Phone: [phone] Procedures Date CPT Code Description Status 04/30/2017 33011 Visual Screening Test Completed 04/30/2017 21987 Tympanometry Completed 02/20/2015 95764 Visual Screening Test Completed 02/20/2015 56117 EKG Completed 02/20/2015 05401 Audiometry, Bekesy, Screening Completed 09/12/2014 21980 EKG Completed 01/18/2013 43277 EKG Completed 08/26/2011 66893 Destruction Flat Wart,Molluscum Contagiosum, Or Milia Completed Up To 14 08/12/2011 03038 Destruction Flat Wart,Molluscum Contagiosum, Or Milia Completed Up To 14 06/24/2011 51891 Tympanometry Completed 12/19/2010 92268 Tympanometry Completed Encounters Type Date Location Provider CPT E/M Dx Office Visit 09/10/2017 4:15[place] [address] L20.9 G47.00 R73.01 H52.13 R31.9 N20.0 B35.1 M79.675 E78.2 R20.1 Office Visit 07/12/2017 4:00[place] [address] L20.9 G47.00 R73.01 H52.13 R31.9 N20.0 B35.1 M79.675 E78.2 R20.1 Office Visit 04/30/2017 3:30p Danny Hensley [facility] [address]287 Z00.01 I10 F41.9 J30.9 Office Visit 12/14/2016 3:45p Ines Guerrero M.D. 03008 I10 F41.9 J30.9 L20.9 G47.00 R73.01 H52.13 R31.9 N20.0 B35.1 M79.675 Office Visit 07/21/2016 4:00p Danny Hensley [facility] 75727 I10 F41.9 J30.9 Office Visit 05/25/2016 4:15p Ines Guerrero M.D. 60934 L03.116 M79.672 I10 F41.9 L20.9 J30.9 G47.00 R73.01 H52.13 R31.9 Office Visit 04/14/2016 4:15p Danny Hensley [facility] 59857 R35.0 I10 G47.00 Office Visit 12/17/2015 1:30p Danny Hensley [facility] 31750 R05 J01.80 R50.9 Office Visit 09/10/2015 4:00p Danny Hensley [facility] 69444 L20.9 F41.9 I10 Office Visit 07/30/2015 4:00p Danny Hensley [facility] 91254 I10 F41.9 G47.00 Office Visit 05/15/2015 4:30p Ines Guerrero M.D. 70145 M79.672 I10 F41.9 R53.81 J30.2 L23.9 F51.9 R73.01 H52.13 R31.9 F33.9 Office Visit 04/10/2015 10:15a Ines Guerrero M.D. 33128 401.1 300.00 780.79 477.8 692.9 311 307.40 790.21 367.1 599.70 Office Visit 02/20/2015 3:45p Ines Guerrero M.D. 75523 V70.0 401.1 300.00 780.79 477.8 692.9 311 307.40 790.21 V85.23 367.1 Office Visit 02/06/2015 9:15a Ines Guerrero M.D. 90555 401.1 300.00 780.79 477.8 692.9 311 307.40 Office Visit 01/23/2015 3:45p Ines Guerrero M.D. 64885 401.1 300.00 780.79 477.8 692.9 311 307.40 Office Visit 10/03/2014 4:00p Ines Guerrero M.D. 04475 401.1 300.00 780.79 477.8 692.9 311 307.40 Office Visit 09/12/2014 3:15p Ines Guerrero M.D. 81602 401.1 300.00 780.79 477.8 692.9 311 307.40 Office Visit 08/28/2014 4:00p Danny Hensley 84925 788.41 788.43 600.00 Office Visit 07/24/2014 10:30a Danny Hensley 77354 788.41 401.1 300.00 477.8 Office Visit 04/11/2014 2:45p Danny Hensley 51640 788.41 401.1 300.00 788.41 692.9 Office Visit 03/01/2014 3:00p Danny Hensley 20299 788.41 788.63 601.0 Office Visit 01/31/2014 4:30p Ines Guerrero M.D. 47304 401.1 300.00 477.8 780.79 278.02 V85.25 Office Visit 09/27/2013 4:15p Danny Hensley 00493 401.1 300.00 477.8 Office Visit 06/16/2013 4:45p Danny Hensley 22964 788.41 788.63 597.80 Office Visit 06/07/2013 4:15p Ines Guerrero M.D. 09186 597.80 788.1 788.41 Office Visit 05/31/2013 4:15p Ines Guerrero M.D. 89808 401.1 692.9 477.8 300.00 311 307.40 Office Visit 05/02/2013 4:15p Danny Hensley [facility] 26035 704.8 Office Visit 03/29/2013 4:30p Danny Hensley [employer] 03718 401.1 300.00 Office Visit 01/18/2013 4:45p Ines Guerrero M.D. 24237 V70.0 401.1 300.00 311 692.9 477.8 307.40 V85.22 Office Visit 11/28/2012 4:30p Ines Guerrero M.D. 32337 401.1 300.00 311 692.9 477.8 Office Visit 10/26/2012 4:15p Ines Guerrero M.D. 75045 780.4 401.1 300.00 311 692.9 477.8 Office Visit 08/31/2012 4:45p Ines Guerrero M.D. 76454 461.8 382.9 477.8 692.9 780.79 372.39 478.19 311 300.00 401.1 Office Visit 07/19/2012 4:30p Danny Hensley 78498 401.1 305.1 Office Visit 06/01/2012 4:30p Ines Guerrero M.D. 98629 692.9 682.7 401.1 477.8 300.00 Office Visit 05/20/2012 4:30p Ines Guerrero M.D. 86788 401.1 477.8 782.1 692.9 300.00 780.79 Office Visit 03/07/2012 4:15p Danny HensleyP 80752 110.3 110.5 401.1 Office Visit 12/30/2011 4:30p Ines Guerrero M.D. 19107 372.30 477.8 401.1 300.00 311 Office Visit 10/30/2011 4:45p Ines Guerrero M.D. 61628 401.1 692.9 300.00 311 Office Visit 10/09/2011 4:30p Ines Guerrero M.D. 02714 692.9 719.46 300.00 Office Visit 09/30/2011 4:30p Danny HensleyP 55658 787.01 009.1 787.91 Office Visit 09/09/2011 4:15p Ines Guerrero M.D. 51075 401.1 528.3 Office Visit 08/26/2011 4:15p Ines Guerrero M.D. 99958 401.1 788.41 448.1 Office Visit 08/12/2011 4:30p Ines Guerrero M.D. 44058 401.1 786.2 448.1 300.00 078.10 Office Visit 07/22/2011 4:30p Ines Guerrero M.D. 72260 401.1 786.2 461.8 311 Office Visit 06/24/2011 4:30p Ines Guerrero M.D. 51995 382.9 786.2 110.3 300.00 Office Visit 06/03/2011 4:30p Ines Guerrero M.D. 80672 788.20 300.00 311 307.40 Office Visit 05/11/2011 4:30p Ines Guerrero M.D. 05897 110.4 780.79 300.00 311 Office Visit 05/04/2011 4:45p Danny HensleyP 00590 401.1 Office Visit 03/27/2011 2:00p Danny Hensley [employer] 89829 401.1 110.1 Office Visit 02/17/2011 4:45p Danny Hensley [employer] 35580 401.1 564.1 369.9 Office Visit 01/01/2011 4:30p Danny HensleyP 03003 401.1 564.00 Office Visit 12/19/2010 2:15p Ines Guerrero M.D. 70723 382.9 477.8 461.8 Office Visit 11/18/2010 4:30p Danny Hensley [employer] 71090 401.1 307.40 Office Visit 10/27/2010 4:45p Marybeth Calderon Danny [employer] 92864 300.00 Office Visit 10/20/2010 4:30p Danny Hensley [employer] 92491 401.1 846.0 Office Visit 10/07/2010 4:45p Marybeth Calderon Danny [employer] 83667 401.1 Office Visit 09/16/2010 4:45p Danny Hensley [employer] 96547 796.2 401.1 Office Visit 08/11/2010 5:00p Danny Hensley [employer] 17256 401.1 079.99 Office Visit 07/31/2010 5:00p Marybeth Calderon Danny [employer] 45105 372.30 461.8 465.9 Office Visit 07/10/2010 4:45p Marybeth Yumiko Danny [employer] 74960 401.1 466.0 Office Visit 05/27/2010 4:45p Marybeth Calderon Danny [employer] 24223 079.99 Office Visit 04/17/2010 4:45p Marybethyahir Calderon Danny [employer] 51568 845.09 Plan of Care 09/10/2017 - Aurelio Santiago PAL20.9 Atopic dermatitis, unspecifiedComments: SKIN CARE INSTRUCTIONS LOTION OR BABY OIL 2-3 APPLICATION PER DAYUSE MOISTURIZING SOAPAVOID PROLONGED WATER EXPOSUREAVOID USING HOT WATER IN FFNXNQI14.00 Insomnia, unspecifiedNew Medication:Hydroxyzine HCL 25 mgComments: COUNCELLING AND REASSURANCE RELAXATION TECHNIQUES DISCUSSED COUNSELED RE: STRESSORS IN LIFE TYLENOLPM OR MOTRIN PM PRNR73.01 Impaired fasting glucoseComments:F/U HGAICFS QAC AN HS PRNLOW GLUCOSE DIETH52.13 Myopia, bilateralComments:USE GLASSES/ CONTACTSF/U WITH [id number] Hematuria, unspecifiedComments:RESOLVED STABLE F/U WITH KOYWWBQF84.0 Calculus of kidneyComments:STABLE F/U WITH UROLOGY PRNB35.1 Tinea unguiumNew Medication: Ketoconazole 2 %Comments:NAIL CARE INSTRUCTIONSTEACHING ABOUT DISEASE AND TREATMENT [id number] Pain in left toe(s)Comments:TYLENOL OR MOTRIN PRN EXERCISE/HEAT/KQOKUIYO11.2 Mixed hyperlipidemiaComments:DIET REVIEWED CONTINUE DIETWT LOSSF/U LAB FBWR20.1 Hypoesthesia of skinComments:NO ABNORMAL FINDINGS ON EXAMSENSATION IS PRESENT BUT DIMINISHED PER PTPT WILL NOTE IF IT IS WORSENEDBY COLD WEATHER AND REPORT ANY SKIN CHANGES IF THEY OCCUROBSERVE FOR NOWNO S/SXS OF MEDIAN NERVE ENTRAPMENT
[2017-09-24 18:46] VITALS: BP 118/67
--- NOTE | 2017-09-24 21:54 | RAD ---
INDICATION: Cough COMPARISON: March 18, 2011 TECHNIQUE: PA and lateral dual-energy views were obtained. FINDINGS: Bones/Soft Tissues: There are no acute bony findings. Cardiomediastinal: The cardiomediastinal silhouette is normal. Lungs: There are no infiltrates. Pleura: There are no pleural effusions. Other: None IMPRESSION: NO ACTIVE DISEASE.
--- NOTE | 2017-09-24 22:09 | UC ---
Respiratory Complaint HPI - HPI Summary HPI Summary: 37 yo male with cough x 2 weeks initially sinus pressure /post nasal drip if is concerned it is in his chest no f/c no CP or sob - History of Current Complaint Chief Complaint: UCRespiratory Stated Complaint: COUGH Time Seen by Provider: 09/24/17 21:15 Hx Obtained From: Patient Onset/Duration: Gradual Onset, Lasting Days Timing: Constant Severity Initially: Mild Severity Currently: Moderate Pain Intensity: 0 Pain Scale Used: 0-10 Numeric Character: Cough: Nonproductive Aggravating Factors: Nothing Alleviating Factors: Nothing Associated Signs And Symptoms: Positive: Nasal Congestion, Sinus Discomfort - Allergies/Home Medications Allergies/Adverse Reactions: Allergies Allergy/AdvReac Type Severity Reaction Status Date / Time No Known Allergies Allergy Verified 09/24/17 18:34 PMH/Surg Hx/FS Hx/Imm Hx Previously Healthy: Yes - Surgical History Surgical History: None - Family History Known Family History: Positive: Cardiac Disease, Hypertension Negative: Diabetes - Social History Alcohol Use: Occasionally Substance Use Type: None Smoking Status (MU): Never Smoked Tobacco Review of Systems Constitutional: Negative Skin: Negative Eyes: Negative ENT: Nasal Discharge, Sinus Congestion, Sinus Pain/Tenderness Respiratory: Cough Cardiovascular: Negative Gastrointestinal: Negative Genitourinary: Negative Motor: Negative Neurovascular: Negative Musculoskeletal: Negative Neurological: Negative Psychological: Negative Is Patient Immunocompromised?: No All Other Systems Reviewed And Are Negative: Yes Physical Exam Triage Information Reviewed: Yes Appearance: Well-Appearing, No Pain Distress, Well-Nourished Vital Signs: Initial Vital Signs Temp 98.6 F 09/24/17 18:40 Pulse 95 09/24/17 18:40 Resp 18 09/24/17 18:40 BP 118/67 09/24/17 18:40 Pulse Ox 99 09/24/17 18:40 Vital Signs Reviewed: Yes Eyes: Positive: Conjunctiva Clear ENT: Positive: Hearing grossly normal, Pharynx normal, Nasal congestion, Nasal drainage, Sinus tenderness, Uvula midline. Negative: Trismus, Muffled voice, Hoarse voice, Dental tenderness Neck: Positive: Supple, Nontender, No Lymphadenopathy Respiratory: Positive: Lungs clear, Normal breath sounds, No respiratory distress, No accessory muscle use Cardiovascular: Positive: RRR, No Murmur Musculoskeletal: Positive: ROM Intact, No Edema Neurological: Positive: Alert Psychological Exam: Normal Skin Exam: Normal UC Diagnostic Evaluation - Laboratory O2 Sat by Pulse Oximetry: 99 - normal/not hypoxic - Radiology Xray Interpretation: No Acute Changes Radiology Interpretation Completed By: Radiologist Respiratory Course/Dx - Differential Dx/Diagnosis Provider Diagnoses: acute bronchitis/sinusitis Discharge - Discharge Plan Condition: Stable Disposition: HOME Prescriptions: Amoxicillin PO (*) [Amoxicillin 875 MG (*)] 875 mg PO BID #20 tab Benzonatate CAP* [Tessalon CAP*] 100 - 200 mg PO TID PRN #28 cap PRN Reason: Cough Patient Education Materials: Sinusitis (ED), Acute Bronchitis (ED) Referrals: [facility] [Primary Care Provider] - 5 Days (if not better)
[2017-09-24] MEDS ORDERED: Amoxicillin PO (*) 500 MG CAP PO ONE (22:10)
[2017-09-24] MEDS ORDERED: Benzonatate CAP* 100 MG PO ONE (22:10)
== END 2017-09-24 22:21 | disposition home or self-care (01) ==
LOC: UCCORT 17:28
DX: J20.9 Acute bronchitis, unspecified (principal); J01.90 Acute sinusitis, unspecified
CPT/HCPCS: 71046; 99212; A9270-GY; G0463